=== PATIENT | male | born 1995 | race Caucasian/White ===

== ENCOUNTER 2019-03-21 14:53 | Emergency (ER) | payer OTHER ==
[~2019-03-21] VITALS: Ht 165.1 cm; Wt 68.0 kg
[2019-03-21 15:00] VITALS: BP 127/82
--- NOTE | 2019-03-21 15:19 | NUR ---
PT BIB SELF TO THE ED WITH THE CHIEF C/O GENERALIZED WEAKNESS, PALPITATION, HEADACHE S/P METH INGESTION TODAY. PT STATES HEADACHE OF 10/10. VSS ON MONITOR. NO SOB OR ACUTE RESPIRATORY DISTRESS NOTED. DENIES FEVER. DENIES N/V/D. DENIES OTHER PROBLEM AT THIS TIME.
[2019-03-21 16:31] LABS: APPEARANCE,URINE CLEAR (CLEAR); BILIRUBIN,URINE NEGATIVE (NEGATIVE); BLOOD, URINE NEGATIVE (NEGATIVE); COLOR,URINE YELLOW (YELLOW); LEUKOCYTE ESTERASE ,URINE NEGATIVE (NEGATIVE); NITRITE, URINE NEGATIVE (NEGATIVE); UGLUCOSE NEGATIVE (NEGATIVE)
[2019-03-21] MEDS ORDERED: NACL 0.9% 1,000 ML IV ONE (16:45)
[2019-03-21 17:08] LABS: BASOPHILS % (AUTO) 0.5 % (0.0-2.0); EOSINOPHILS # (AUTO) 0.1 K/uL (0-0.4); EOSINOPHILS % (AUTO) 1.7 % (0.0-4.0); HEMATOCRIT 40.4 % (36-52); LYMPHOCYTES # (AUTO) 2.7 K/uL (2.0-11.5); LYMPHOCYTES % (AUTO) 35.9 % (20.5-51.1); MEAN CORPUSCULAR HEMOGLOBIN 29 pg (27-31); MEAN CORPUSCULAR HGB CONC 35 g/dL (33-37); MEAN CORPUSCULAR VOLUME 84.9 fL (80-94); MONOCYTES # (AUTO) 0.6 K/uL (0.8-1.0); MONOCYTES % (AUTO) 8.6 % (1.7-9.3); NEUTROPHILS % (AUTO) 53.3 % (42.2-75.2); PLATELET COUNT (AUTO) 260 K/uL (140-450); RED BLOOD CELL COUNT(AUTO) 4.76 MIL/uL (4.20-6.10); RED CELL DISTRIBUTION WIDTH 12.9 % (11.6-13.7); WHITE BLOOD COUNT (AUTO) 7.4 K/uL (4.8-10.8)
[2019-03-21 17:19] LABS: ANION GAP 11.7 (8-16); CARBON DIOXIDE 28.2 mmol/L (21-32); CREATININE 1.1 mg/dL (0.7-1.3); POTASSIUM 3.9 mmol/L (3.5-5.1)
[2019-03-21 17:25] LABS: ALBUMIN 4.4 g/dL (3.4-5.0); TOTAL BILIRUBIN 0.9 mg/dL (0.0-1.0)
--- NOTE | 2019-03-21 17:57 | NUR ---
PT VERBALIZED FEELING BETTER. NO SOB OR RESPIRATORY DISTRESS NOTED. DENIES PALPITATION OR DIZZINESS. VERBALIZED HEADACHE GETTING BETTER.
[2019-03-21 18:15] VITALS: BP 124/63
== END 2019-03-21 18:31 | disposition home or self-care (01) ==
LOC: MED 14:53
DX: F15.90 Other stimulant use, unspecified, uncomplicated (principal); D75.1 Secondary polycythemia; Z87.820 Personal history of traumatic brain injury; Z88.6 Allergy status to analgesic agent
CPT/HCPCS: 36415; 71046; 80053; 81003; 85025; 85379; 93005; 99284; J7030